=== PATIENT | female | born 1950 ===

== ENCOUNTER 2019-07-23 15:17 | Emergency (ER) | payer BC ==
[~2019-07-23] VITALS: Ht 157.5 cm; Wt 83.9 kg
[2019-07-23] MEDS ORDERED: VITAMIN B12-FO1 EACH (15:53)
[2019-07-23] MEDS ORDERED: ZYRTEC10 M3 (15:53)
[2019-07-23] MEDS ORDERED: VITAMIN D1000 UNIT (15:54)
== END 2019-07-23 19:06 | disposition home or self-care (01) ==
LOC: ER 15:17
DX: M62.830 Muscle spasm of back (principal); K80.50 Calculus of bile duct without cholangitis or cholecystitis without obstruction; M51.34 Other intervertebral disc degeneration, thoracic region